=== PATIENT | female | born 1955 | race Caucasian/White ===

== ENCOUNTER 2017-02-25 12:24 | Emergency (ER) | payer BC ==
[2017-02-25 12:37] VITALS: BP 149/73
--- NOTE | 2017-02-25 12:50 | EDM.PDOC ---
ED HPI GENERAL MEDICAL PROBLEM - General Chief Complaint: Respiratory Problem Stated Complaint: CHEST COLD Time Seen by Provider: 02/25/17 12:45 Source of Information: Reports: Patient - History of Present Illness INITIAL COMMENTS - FREE TEXT/NARRATIVE: Pt with cold symptoms x 10 days. Diagnosed with allergies on Monday. With chills today. Cough has persisted, is deep. Short of breath at times. Hx of sinusitis. Is doing nasal rinse. Thought Zyrtec made her sleepy. Onset: Gradual Duration: Getting Worse Location: Reports: Chest Improves with: Reports: None Worsens with: Reports: None Context: Reports: Activity Associated Symptoms: Reports: No Other Symptoms - Related Data Allergies Allergy/AdvReac Type Severity Reaction Status Date / Time No Known Allergies Allergy Verified 05/24/15 10:31 Home Meds: Home Meds Tolterodine Tartrate [Detrol LA] 4 mg PO DAILY 05/24/15 [History] Past Medical History HEENT History: Reports: Impaired Vision Other OB/BYN History: 1977, 1980 - Past Surgical History Other Female Surgeries/Procedures: 2000 Social & Family History - Tobacco Use Smoking Status *Q: Never Smoker Years of Tobacco use: 20 - Alcohol Use Days Per Week of Alcohol Use: 3 Number of Drinks Per Day: 1 Total Drinks Per Week: 3 - Recreational Drug Use Recreational Drug Use: No ED ROS GENERAL - Review of Systems Review Of Systems: See Below Constitutional: Reports: Fever, Chills, Fatigue HEENT: Reports: Sinus Problem, Throat Pain Respiratory: Reports: Shortness of Breath, Cough Cardiovascular: Reports: No Symptoms Endocrine: Reports: No Symptoms GI/Abdominal: Reports: No Symptoms ED EXAM, GENERAL - Physical Exam Exam: See Below Exam Limited By: No Limitations General Appearance: Alert, WD/WN, No Apparent Distress Ears: Normal External Exam, Normal Canal, Hearing Grossly Normal, Normal TMs Ear Exam: Bilateral Ear: Auricle Normal, Canal Normal, TM normal Nose: Normal Inspection, Nasal Swelling, Other (nasal polyps, meaty appearance.) Head: Atraumatic, Normocephalic Neck: Normal Inspection, Supple, Non-Tender, Full Range of Motion Respiratory/Chest: No Respiratory Distress, Lungs Clear, Normal Breath Sounds, No Accessory Muscle Use, Chest Non-Tender Cardiovascular: Normal Peripheral Pulses, Regular Rate, Rhythm, No Edema, No Gallop, No JVD, No Murmur, No Rub GI/Abdominal: Normal Bowel Sounds, Soft, Non-Tender, No Organomegaly, No Distention, No Abnormal Bruit, No Mass Course - Vital Signs Last Recorded V/S: Last Vital Signs Temp 97.2 F 02/25/17 12:39 Pulse 74 02/25/17 12:39 Resp 16 02/25/17 12:39 BP 149/73 H 02/25/17 12:39 Pulse Ox 94 L 02/25/17 12:39 Departure - Departure Time of Disposition: 12:51 Disposition: Home, Self-Care 01 Condition: good Clinical Impression: Sinusitis Qualifiers: Sinusitis location: frontal Chronicity: acute Recurrence: recurrent Qualified Code(s): J01.11 - Acute recurrent frontal sinusitis - Discharge Information Forms: ED Department Discharge Additional Instructions: Discussed treatment options. May use Flonase twice daily. Rx for Augmentin 875mg BID x 10 days. Continue nasal rinses routinely. Consider ENT referral for polyposis. Pt requests rx for possible yeast infection from antibiotic. Rx for Diflucan 150mg po x 1 dose. - Problem List & Annotations (1) Sinusitis SNOMED Code(s): 61464065 Code(s): J32.9 - CHRONIC SINUSITIS, UNSPECIFIED Status: Acute Priority: Low Current Visit: Yes Qualifiers: Sinusitis location: frontal Chronicity: acute Recurrence: recurrent Qualified Code(s): J01.11 - Acute recurrent frontal sinusitis
== END 2017-02-25 13:21 | disposition home or self-care (01) ==
LOC: JP.ED 12:24
DX: J01.11 Acute recurrent frontal sinusitis (principal); Z79.899 Other long term (current) drug therapy
CPT/HCPCS: 99283

== ENCOUNTER 2022-07-29 12:24 | Emergency (ER) | payer MEDICARE ==
[2022-07-29 13:04] VITALS: PULSE 75
[2022-07-29 13:54] VITALS: BP 130/69
== END 2022-07-29 14:14 | disposition home or self-care (01) ==
LOC: JP.ED 12:24
DX: R07.89 Other chest pain (principal); Z87.891 Personal history of nicotine dependence
CPT/HCPCS: 36415; 71045; 80048; 84484; 85025; 93005; 99285

== ENCOUNTER 2022-10-11 09:21 | Emergency (ER) | payer MEDICARE ==
[2022-10-11 09:46] VITALS: BP 128/77; PULSE 88
[2022-10-11 10:37] LABS: TROPONIN I HIGH SENSITIVITY 4.3 pg/mL (<=60.3)
== END 2022-10-11 11:47 | disposition home or self-care (01) ==
LOC: JP.ED 09:21
DX: R07.89 Other chest pain (principal); Z87.891 Personal history of nicotine dependence
CPT/HCPCS: 36415; 80048; 84443; 84484; 85025; 93005; 93010; 99283; 99285